=== PATIENT | male | born 1995 | race Caucasian/White ===

== ENCOUNTER 2022-06-21 08:36 | Emergency (ER) | payer OTHER ==
[2022-06-21] MEDS ORDERED: ATHLETIC FOOT C30 GM TOP (09:40)
[2022-06-21 10:06] LABS: INFLUENZA A NAA NEGATIVE (NEGATIVE)
[2022-06-21 10:07] LABS: CORONAVIRUS 2019 SARS-COV-2 POSITIVE (NEGATIVE)
== END 2022-06-21 09:50 | disposition home or self-care (01) ==
LOC: FER 08:36
PROVIDERS: Emergency Medicine
DX: B35.3 Tinea pedis (principal); U07.1 COVID-19; Z28.310 Unvaccinated for COVID-19
CPT/HCPCS: 99283; U0002